=== PATIENT | female | born 1930 | race American Indian/Alaskan Native ===

== ENCOUNTER 2017-04-04 06:34 | Day surgery (SDC) | payer MEDICARE, OTHER ==
[2017-04-03 09:36] VITALS: BMI 26.2
[2017-04-04] MEDS ORDERED: Aminophylline 25 mg/ml Inj ONE (09:32)
[2017-04-04 14:07] VITALS: BP 147/71; PULSE 78; RESP 18; TEMP 97.6; O2SAT 100
--- NOTE | 2017-04-05 19:52 | CARD ---
APPROVED REPORT Protocol: PHARMACOLOGICAL STRESS Test Type: LEXISCAN Test Indications: DIZZINESS,SYNCOPE Medications: LIST SCAN Medical History: DIZZINESS , SYNCOPE Target HR: 131 bpm Resting ECG: NSR W/ NS ST T CHANGES Resting Heart Rate: 65 bpm Resting Blood Pressure: 140/80mmHg submaximum (85%): 111 bpm TEST SUMMARY [id number]/80.0. INFUSIONDOSE 100:300.00.01.427734/80.0. [id number]:[id number]/70.0. PROCEDURE Pharmacologic stress testing was performed using 0.4mg per 5ml of regadenoson given intravenously over 7-10 seconds. Reversal agent aminophyline 125 mg, given intravenously for Headache. POST EXERCISE Reason for Termination: Protocol Completed Target HR: No Max HR: 73 bpm 76% of Maximum Predicted HR: 131 bpm Exercise duration: 00:30 min:sec, 0 Stage Exercise capacity: 1.0METs Max Blood Pressure: 160/70mmHg Blood Pressure response to exercise: normal resting BP - appropriate response Heart Rate response to exercise: appropriate Chest Pain: No, none Angina index: 0 Arrhythmia: No, none ST Change: No, none Deviation: 0 mm INTERPRETATION Stress EKG Conclusion: NEGATIVE LEXISCAN STRESS TEST NORMAL BP RESPONSE TO LEXISCAN NUCLEAR STUDIES TO BE READ SEPARATELY EXAM: Myocardial Perfusion STRESS/REST Imaging Protocol The imaging protocol used to acquire images was Stress Tc-99m/rest Tc-99m 1 day Rest Spect myocardial perfusion imaging was performed in supine position 45 minutes following the injection of 31.3 mCi of Tc-99 Myoview. Gated Stress Spect was performed 45 minutes after intravenous 12.3 mCi Tc-99 Myoview injection. The images were gated to evaluate regional wall motion and calculate ventricular ejection fraction.Images were reconstructed using backfilter projection method in short horizontal and verticle long axis. Spect slices were generated. RESTING DATA EDV75.80glKP2.40L/min ESV21.00mlMyocardial Vopl554.00g Av. Heart Rate63.00bpm EF72.00% STRESS DATA EDV70.01ptJM6.50L/min ESV20.00mlMyocardial Chov644.00g EF71.00% Regional WT score at stress:0.00 Regional WM score at stress:0.00 Summed WT score at stress:0.00 Av. Heart Rate70.00bpmSummed WM score at stress:3.00 LV Perf. Quant 17 Seg. SSS3.00 17 Seg. SRS3.00 17 Seg. SDS0.00 Stress Defect Extent (% LAD)0.00Rest Defect Extent (% LAD)0.00Rev. Defect Extent (% LAD)0.00 Stress Defect Extent (% LCX)35.00Rest Defect Extent (% LCX)45.00Rev. Defect Extent (% LCX)0.00 Stress Defect Extent (% RCA)0.00Rest Defect Extent (% RCA)0.00Rev. Defect Extent (% RCA)0.00 Stress Defect Extent (% JAZZY)6.10Rest Defect Extent (% JAZZY)8.00Rev. Defect Extent (% JAZZY)0.00 IMPRESSION Normal Myocardial Perfusion exercise stress study Left Ventricle LV Size/Shape: The left ventricle is normal size. LV Thickness: There is normal left ventricular wall thickness. LV Function:Left ventricle systolic function is normal. The Ejection Fraction is >70%. Regional Wall Motion:There is normal left ventricular wall motion. Metabolism/Perfusion Defects: There is no scan evidence of reversible ischemia. There are no perfusion/metabolism defects. Conclusion 1. There is no scan evidence of reversible ischemia. 2. Left ventricle systolic function is normal. 3. The Ejection Fraction is >70%.
--- NOTE | 2017-04-07 08:13 | PROCN ---
DATE: 04/04/17 TILT-TABLE TEST REPORT INDICATIONS: Recurrent dizziness. DRILLING FIELD SPECIALIST: Dr. Lucita Zabala. Tilt-table test was performed in the usual protocol. The patient was put on the table and the table was tilted at 30 degrees for 5 minutes and 60 degrees for 15 minutes. The patient denies any symptoms throughout the test. IMPRESSION: Appropriate blood pressure and heart rate, responds to tilt-table test. The patient was asymptomatic throughout the test. Lucita Zabala MD
== END 2017-04-04 15:09 | disposition home or self-care (01) ==
LOC: C.CATHLAB 06:34
PROVIDERS: ATTEND Internal Medicine
DX: R42 Dizziness and giddiness (principal); R55 Syncope and collapse
CPT/HCPCS: 78452; 93017; 93306; 93660; A9502; J0280; J2785

== ENCOUNTER 2017-10-21 15:54 | Inpatient (IN) | payer MEDICARE, OTHER ==
[2017-10-21 16:15] VITALS: BMI 25.0
[2017-10-21 17:52] LABS: BASO % 0.5 % (0.0-2.0); EOS % 0.8 % (0.0-4.0); HEMOGLOBIN 11.2 g/dL (11.0-16.0); LYMPH # 0.9 K/uL (1.0-4.3); MEAN CELL VOLUME 89.9 fL (81.0-99.0); MEAN CORPUSCULAR HEMOGLOBIN 29.9 pg (27.0-31.0); MEAN CORPUSCULAR HGB CONC 33.2 g/dL (33.0-37.0); MEAN PLATELET VOLUME 7.7 fL (7.2-11.7); MONO # 0.5 K/uL (0.0-0.8); MONO % 8.1 % (0.0-10.0); NEUT # 4.4 K/uL (1.8-7.0); NEUT % 74.6 % (50.0-75.0); RBC 3.73 Mil/uL (3.80-5.20); RED CELL DISTRIBUTION WIDTH 13.8 % (11.5-14.5); WHITE BLOOD COUNT 5.8 K/uL (4.8-10.8)
[2017-10-21 18:00] LABS: ALBUMIN 3.9 g/dL (3.5-5.0); ALT/SGPT 14 U/L (9-52); AST/SGOT 29 U/L (14-36); BLOOD UREA NITROGEN 14 mg/dL (7-17); CALCIUM 8.7 mg/dl (8.6-10.4); GFR AFRICAN-AMERICAN > 60; GFR NON-AFRICAN AMERICAN > 60
--- NOTE | 2017-10-21 18:02 | RAD ---
PROCEDURE: CHEST RADIOGRAPH, 1 VIEW HISTORY: chest pain, SOB COMPARISON: 11/21/2012 FINDINGS: LUNGS: Clear. PLEURA: No pneumothorax or pleural fluid seen. CARDIOVASCULAR: No radiographic findings to suggest acute or significant cardiovascular disease. OSSEOUS STRUCTURES: No significant abnormalities. VISUALIZED UPPER ABDOMEN: Normal. OTHER FINDINGS: Deformity cavity left eboni thorax likely the sequela prior trauma including healed contiguous posterior lateral right rib fractures. IMPRESSION: No active disease. No acute/significant interval changes.
[2017-10-21 18:11] LABS: B-TYPE NATRIURETIC PEPTIDE 652 pg/mL (0-900)
--- NOTE | 2017-10-21 18:34 | C.PDOC ---
Time Seen by Provider: 10/21/17 17:17 Chief Complaint (Nursing): Chest Pain History Per: Patient, Family Onset/Duration Of Symptoms: Days (2), Intermittent Episodes Current Symptoms Are (Timing): Better Severity: Moderate Associated Symptoms: Dyspnea, Other (Dizziness) Modifying Factors: Other Indicated Below Alleviating Factors: None Additional History Per: Prior Records Past Medical History Reviewed: Historical Data, Nursing Documentation, Vital Signs Vital Signs: Last Vital Signs Temp 97.7 F 10/21/17 16:15 Pulse 75 10/21/17 17:50 Resp 13 10/21/17 17:50 BP 165/71 H 10/21/17 17:50 Pulse Ox 100 10/21/17 17:50 - Medical History PMH: Fractures (ribs), HTN, Hyperlipidemia, Peripheral Edema Surgical History: Endoscopy - [facility] Procedures CATARAC PHACOEMULS/ASPIR (10/17/05) INSERT LENS AT CATAR EXT (10/17/05) OCCUPATIONAL THERAPY (11/01/11) PHYSICAL THERAPY NEC (11/01/11) REVISE CARD RHYTHM DEV IN TRUNK SUBCU/FASCIA, PERC (10/24/14) Family History: States: Unknown Family Hx - Social History Hx Tobacco Use: No Hx Alcohol Use: No Hx Substance Use: No - Immunization History Hx Tetanus Toxoid Vaccination: No Hx Influenza Vaccination: No Hx Pneumococcal Vaccination: No Review Of Systems Except As Marked, All Systems Reviewed And Found Negative. Constitutional: Negative for: Fever, Weakness Cardiovascular: Positive for: Chest Pain Respiratory: Positive for: Shortness of Breath. Negative for: Hemoptysis Gastrointestinal: Negative for: Vomiting, Abdominal Pain Skin: Negative for: Rash Neurological: Positive for: Dizziness. Negative for: Weakness, Numbness Physical Exam - Physical Exam Appears: Non-toxic, No Acute Distress Skin: Normal Color, Warm, Dry, No Rash Head: Atraumatic, Normacephalic Eye(s): bilateral: Normal Inspection, PERRL, EOMI Neck: Normal ROM, Supple Cardiovascular: Rhythm Regular Respiratory: Normal Breath Sounds, No Accessory Muscle Use Gastrointestinal/Abdominal: Soft, No Tenderness Extremity: Normal ROM, No Calf Tenderness Neurological/Psych: Oriented x3, Normal Motor, Normal Sensation ED Course And Treatment - Laboratory Results Result Diagrams: 10/21/17 17:41 10/21/17 17:41 Lab Interpretation: No Acute Changes ECG: Interpreted By Me, Viewed By Me ECG Rhythm: Sinus Rhythm, 1st Degree HB, Nonspecific Changes Rate From EC O2 Sat by Pulse Oximetry: 100 Pulse Ox Interpretation: Normal - Radiology CXR: Viewed By Me, Read By Radiologist CXR Interpretation: Yes: No Acute Disease Progress - Interventions Interventions:: Observation - Medications Administered Oral: Aspirin - Data Reviewed Data Reviewed: Lab, Diagnostic imaging, EKG, Old records - Continuity of Care Discussed patient case with:: Patient, Family-HIPPA compliant, ED Nurse, PMD Disposition Discussed With DrBrian: Lucita Zabala Comment: He accepted pt on his service. Doctor Will See Patient In The: Hospital Counseled Patient/Family Regarding: Studies Performed, Diagnosis - Disposition Disposition: HOSPITALIZED Disposition Time: 18:39 Condition: FAIR - Clinical Impression Clinical Impression: Chest pain, Dizziness
[2017-10-21] MEDS ORDERED: Enoxaparin 40 mg Syringe SC ONE (23:54)
[2017-10-22] MEDS: Metoprolol Succinate 25 mg XL Tab PO SCH ×3 (00:27→17:22)
[2017-10-22] MEDS: Ranolazine 500 mg Extended Release Tablets PO SCH ×3 (00:28→17:22)
[2017-10-22 00:45] LABS: CK-MB 1.52 ng/mL (0.0-3.38)
[2017-10-22 07:21] LABS: CK-MB 1.34 ng/mL (0.0-3.38); TROPONIN I 0.013 ng/mL (0.00-0.120)
[2017-10-22] MEDS ORDERED: Ergocalciferol 50,000 Intl Units Cap PO SCH (10:00)
[2017-10-22] MEDS: Enoxaparin 40 mg Syringe SC SCH (10:20)
--- NOTE | 2017-10-22 20:49 | CARD ---
APPROVED REPORT EKG Measurement Heart [id number] AL [id number] <Conclusion> Sinus rhythm with 1st degree AV block Left anterior fascicular block Abnormal ECG
--- NOTE | 2017-10-22 21:54 | CP.PCM.HP ---
History of Present Illness - History of Present Illness History of Present Illness: CC dizziness chest pain HPI 87 y/o AAF admitted w/ 2 day hx of recurrent dizziness with occasional near syncopal episode. Pt also endorses right sided chest pain radiating to the mid- sternal area. EKG in the office revealed NSR w/ first degree AV block, LAHB and IRBBB. Pt was advised to go to ER for admission. Present on Admission - Present on Admission Any Indicators Present on Admission: No Review of Systems - Cardiovascular Cardiovascular: Chest Pain, Dyspnea on Exertion Additional comments: near-syncope - Respiratory Respiratory: Dyspnea on Exertion. absent: Cough - Neurological Neurological: Dizziness. absent: Focal Weakness Additional comments: near-syncope Past Patient History - Past Medical History & Family History Past Medical History?: Yes - Past Social History Smoking Status: Never Smoked - CARDIAC Hx Hypercholesterolemia: Yes Hx Hypertension: Yes - PULMONARY Hx Respiratory Disorders: Yes (1991 trauma punctured lung ribs fractued) - NEUROLOGICAL Hx Neurological Disorder: Yes Hx Dizziness: Yes - HEENT Hx HEENT Problems: Yes Hx Cataracts: Yes (bilat iol) Hx Glaucoma: Yes - RENAL Hx Chronic Kidney Disease: No - ENDOCRINE/METABOLIC Hx Endocrine Disorders: No - HEMATOLOGICAL/ONCOLOGICAL Hx Blood Disorders: Yes Hx Blood Transfusions: Yes Hx Blood Transfusion Reaction: No - INTEGUMENTARY Hx Dermatological Problems: No - MUSCULOSKELETAL/RHEUMATOLOGICAL Hx Fractures: Yes (ribs) - GASTROINTESTINAL Hx Gastrointestinal Disorders: Yes Hx Gastroesophageal Reflux: Yes - GENITOURINARY/GYNECOLOGICAL Hx Genitourinary Disorders: No - PSYCHIATRIC Hx Substance Use: No - SURGICAL HISTORY Hx Surgeries: Yes Hx Cataract Extraction: Yes - ANESTHESIA Hx Anesthesia: Yes Hx Anesthesia Reactions: No Hx Malignant Hyperthermia: No Meds Allergies/Adverse Reactions: Allergies Allergy/AdvReac Type Severity Reaction Status Date / Time No Known Allergies Allergy Verified 10/21/17 16:14 Physical Exam - Constitutional Appears: Non-toxic - Head Exam Head Exam: NORMAL INSPECTION - Eye Exam Eye Exam: absent: Scleral icterus - ENT Exam ENT Exam: Mucous Membranes Moist - Neck Exam Neck exam: Positive for: Full Rom. Negative for: Lymphadenopathy - Respiratory Exam Respiratory Exam: Decreased Breath Sounds, NORMAL BREATHING PATTERN - Cardiovascular Exam Cardiovascular Exam: REGULAR RHYTHM. absent: Diastolic murmur, Systolic Murmur - GI/Abdominal Exam GI & Abdominal Exam: Soft. absent: Tenderness - Extremities Exam Extremities exam: Positive for: pedal edema - Neurological Exam Neurological exam: Alert, Oriented x3 Results - Vital Signs Recent Vital Signs: Last Vital Signs Temp 98.3 F 10/22/17 15:16 Pulse 69 10/22/17 15:16 Resp 20 10/22/17 15:16 BP 153/75 H 10/22/17 15:16 Pulse Ox 100 10/22/17 15:16 - Labs Result Diagrams: 10/21/17 17:41 10/21/17 17:41 Labs: Laboratory Results - last 24 hr 10/22/17 10/22/17 00:12 06:00 Total Creatine Kinase 117 86 CK-MB (Mass) 1.52 1.34 Troponin I < 0.0120 0.0130 Assessment & Plan - Assessment and Plan (Free Text) Assessment: Near-syncope ACS Plan: trops q6hr x 3 with ekg echo interrogate loop lexiscan Consider PPM implant if loop reveal Complete Heart Block or complete RBBB.
[2017-10-22] MEDS ORDERED: Enoxaparin 40 mg Syringe SC SCH (23:12)
[2017-10-23] MEDS: Ranolazine 500 mg Extended Release Tablets PO SCH ×3 (10:00→17:28)
[2017-10-23] MEDS: Enoxaparin 40 mg Syringe SC SCH (10:00)
[2017-10-23] MEDS: Metoprolol Succinate 25 mg XL Tab PO SCH ×3 (10:00→17:27)
--- NOTE | 2017-10-24 09:54 | CARD ---
APPROVED REPORT Protocol: PHARMACOLOGICAL STRESS Test Type: LEXISCAN Test Indications: CHEST PAIN,R/O CAD Medications: LIST SCAN Medical History: DIZZINESS, SYNCOPE, CHEST PAIN,R/O CAD Target HR: 131 bpm Resting ECG: NSR WITH FIRST DEGREE AV BLOCK Resting Heart Rate: 64 bpm Resting Blood Pressure: 141/70mmHg submaximum (85%): 111 bpm TEST SUMMARY [id number]:200.00.01.652597/70.0. INFUSIONDOSE 100:300.00.01.062/.0. ZNRZDTSUN96:170.00.01.733331/60.0. PROCEDURE Pharmacologic stress testing was performed using 0.4mg per 5ml of regadenoson given intravenously over 7-10 seconds. Reversal agent aminophyline 125 mg, given intravenously for Dizziness. POST EXERCISE Reason for Termination: Protocol Completed Target HR: No Max HR: 62 bpm 65% of Maximum Predicted HR: 131 bpm Exercise duration: 00:30 min:sec, 0 Stage Exercise capacity: 1.0METs Max Blood Pressure: 141/70mmHg Blood Pressure response to exercise: normal resting BP - appropriate response Heart Rate response to exercise: appropriate Chest Pain: No, none Angina index: 0 Arrhythmia: No, none ST Change: No, none Deviation: 0 mm INTERPRETATION Stress EKG Conclusion: NEGATIVE LEXISCAN STRESS TEST NORMAL BP RESPONSE TO LEXISCAN NUCLEAR STUDIES TO BE READ SEPARATELY EXAM: Myocardial Perfusion STRESS/REST Imaging Protocol The imaging protocol used to acquire images was Stress Tc-99m/rest Tc-99m 1 day Rest Spect myocardial perfusion imaging was performed in supine position 45 minutes following the injection of 32.4 mCi of Tc-99 Myoview. Gated Stress Spect was performed 45 minutes after intravenous 13.2 mCi Tc-99 Myoview injection. The images were gated to evaluate regional wall motion and calculate ventricular ejection fraction.Images were reconstructed using backfilter projection method in short horizontal and verticle long axis. Spect slices were generated. RESTING DATA EDV85.47wtVP5.70L/min1/3 Pk. Filling Rate1.54EDV/sec LV Time to Pk. Filling Steg313.06msec ESV21.00mlMyocardial Vums542.00gLV Time to Pk. Ejection Hfbk834.16msec Pk. Fill Rate3.39EDV/secAv. Heart Rate74.00bpm EF75.00%Pk. Emptying Rate4.31ESV/sec STRESS DATA EDV82.67kaFO2.40L/min ESV24.00mlMyocardial Jued457.00g Pk. Fill Rate2.27EDV/sec EF71.00%Pk. Emptying Rate3.58ESV/sec 1/3 Pk. Filling Rate1.11EDV/secRegional WT score at stress:1.00 LV Time to Pk. Filling Rate:311.98msecRegional WM score at stress:0.00 LV Time to Pk. Ejection Rate:149.90msecSummed WT score at stress:8.00 Av. Heart Rate59.00bpmSummed WM score at stress:1.00 LV Perf. Quant 17 Seg. SSS6.00 17 Seg. SRS3.00 17 Seg. SDS3.00 Stress Defect Extent (% LAD)0.00Rest Defect Extent (% LAD)0.00Rev. Defect Extent (% LAD)0.00 Stress Defect Extent (% LCX)30.00Rest Defect Extent (% LCX)18.80Rev. Defect Extent (% LCX)1.30 Stress Defect Extent (% RCA)0.00Rest Defect Extent (% RCA)0.00Rev. Defect Extent (% RCA)0.00 Stress Defect Extent (% JAZZY)7.20Rest Defect Extent (% JAZZY)3.30Rev. Defect Extent (% JAZZY)0.20 IMPRESSION Abnormal Myocardial Perfusion exercise stress study Left Ventricle LV Size/Shape: The left ventricle is normal size. LV Function:Left ventricle systolic function is normal. The Ejection Fraction is >70%. Regional Wall Motion:There is normal left ventricular wall motion. Metabolism/Perfusion Defects: There is scan evidence of reversible ischemia involving the inferior wall noted. Conclusion 1. There is scan evidence of reversible ischemia involving the inferior wall noted. 2. Left ventricle systolic function is normal. 3. The Ejection Fraction is >70%.
[2017-10-24] MEDS: Ranolazine 500 mg Extended Release Tablets PO SCH ×2 (10:32→18:05)
[2017-10-24] MEDS: Metoprolol Succinate 25 mg XL Tab PO SCH ×2 (10:33→18:00)
[2017-10-24] MEDS: Enoxaparin 40 mg Syringe SC SCH (10:33)
[2017-10-25] MEDS: Metoprolol Succinate 25 mg XL Tab PO SCH ×2 (09:54→19:00)
[2017-10-25] MEDS: Ranolazine 500 mg Extended Release Tablets PO SCH ×2 (09:54→19:00)
[2017-10-25] MEDS: Enoxaparin 40 mg Syringe SC SCH (10:01)
--- NOTE | 2017-10-25 15:15 | CP.PCM.PN ---
Subjective - Date & Time of Evaluation Date of Evaluation: 10/23/17 Time of Evaluation: 08:00 - Subjective Subjective: Pt denied any chest chest but still having recurrent dizziness. Lexiscan performed on the patient. Results-pending Objective - Vital Signs/Intake and Output Vital Signs (last 24 hours): Temp Pulse Resp BP Pulse Ox 98.5 F 64 20 152/77 H 99 10/25/17 08:44 10/25/17 08:44 10/25/17 08:44 10/25/17 14:31 10/25/17 08:44 Intake and Output: 10/25/17 10/25/17 06:59 18:59 Intake Total 360 480 Balance 360 480 - Medications Medications: Current Medications Aspirin (Aspirin Chewable) 81 mg PO DAILY [facility] Last Admin: 10/25/17 09:54 Dose: 81 mg Enoxaparin Sodium (Lovenox) 40 mg SC DAILY [facility] Last Admin: 10/25/17 10:01 Dose: Not Given Ergocalciferol (Drisdol 50,000 Intl Units Cap) 1 cap PO QWK [facility] Last Admin: 10/22/17 10:27 Dose: 1 cap Famotidine (Pepcid) 20 mg PO DAILY [facility] Last Admin: 10/25/17 09:54 Dose: 20 mg Losartan Potassium (Cozaar) 100 mg PO DAILY [facility] Last Admin: 10/25/17 09:54 Dose: 100 mg Metoprolol Succinate (Toprol Xl) 25 mg PO BID [facility] Last Admin: 10/25/17 09:54 Dose: 25 mg Ranolazine (Ranexa) 500 mg PO BID [facility] Last Admin: 10/25/17 09:54 Dose: 500 mg Rosuvastatin Calcium (Crestor) 10 mg PO HS [facility] Last Admin: 10/24/17 21:42 Dose: 10 mg - Labs Labs: 10/21/17 17:41 10/21/17 17:41 - Constitutional Appears: Non-toxic - Head Exam Head Exam: NORMAL INSPECTION - Eye Exam Eye Exam: absent: Scleral icterus - ENT Exam ENT Exam: Mucous Membranes Moist - Neck Exam Neck Exam: Full ROM - Respiratory Exam Respiratory Exam: NORMAL BREATHING PATTERN - Cardiovascular Exam Cardiovascular Exam: REGULAR RHYTHM - GI/Abdominal Exam GI & Abdominal Exam: Soft. absent: Tenderness - Extremities Exam Additional comments: Left foot swollen due to chronic lymphedema - Neurological Exam Neurological Exam: Alert, Oriented x3 Assessment and Plan - Assessment and Plan (Free Text) Assessment: ACS Recurrent dizziness HTN Plan: TILT Table Test tomorrow Cont meds
--- NOTE | 2017-10-25 15:25 | CP.PCM.PN ---
Subjective - Date & Time of Evaluation Date of Evaluation: 10/24/17 Time of Evaluation: 09:30 - Subjective Subjective: TILT table Test performed. Indic: Near-syncope OBSERVATION : Slow decline in BP 22mmHg dropped and HR 6bpm dropped Patient experienced dizziness during the the test IMPRESSION: CHANGES IN BLOOD PRESSURE AND HEART RATE ARE CONSISTENT WITH AUTONOMIC NEUROPATHY. Objective - Vital Signs/Intake and Output Vital Signs (last 24 hours): Temp Pulse Resp BP Pulse Ox 98.5 F 64 20 152/77 H 99 10/25/17 08:44 10/25/17 08:44 10/25/17 08:44 10/25/17 14:31 10/25/17 08:44 Intake and Output: 10/25/17 10/25/17 06:59 18:59 Intake Total 360 480 Balance 360 480 - Medications Medications: Current Medications Aspirin (Aspirin Chewable) 81 mg PO DAILY [facility] Last Admin: 10/25/17 09:54 Dose: 81 mg Enoxaparin Sodium (Lovenox) 40 mg SC DAILY [facility] Last Admin: 10/25/17 10:01 Dose: Not Given Ergocalciferol (Drisdol 50,000 Intl Units Cap) 1 cap PO QWK [facility] Last Admin: 10/22/17 10:27 Dose: 1 cap Famotidine (Pepcid) 20 mg PO DAILY [facility] Last Admin: 10/25/17 09:54 Dose: 20 mg Losartan Potassium (Cozaar) 100 mg PO DAILY [facility] Last Admin: 10/25/17 09:54 Dose: 100 mg Metoprolol Succinate (Toprol Xl) 25 mg PO BID [facility] Last Admin: 10/25/17 09:54 Dose: 25 mg Ranolazine (Ranexa) 500 mg PO BID [facility] Last Admin: 10/25/17 09:54 Dose: 500 mg Rosuvastatin Calcium (Crestor) 10 mg PO HS [facility] Last Admin: 10/24/17 21:42 Dose: 10 mg - Labs Labs: 10/21/17 17:41 10/21/17 17:41
--- NOTE | 2017-10-25 15:29 | CP.PCM.PN ---
Subjective - Date & Time of Evaluation Date of Evaluation: 10/24/17 Time of Evaluation: 10:25 - Subjective Subjective: Lexiscan - revealed ischemia in the inferior wall TILT Table test - revealed BP and HR response consistent with Autonomic neuropathy Objective - Vital Signs/Intake and Output Vital Signs (last 24 hours): Temp Pulse Resp BP Pulse Ox 98.5 F 64 20 152/77 H 99 10/25/17 08:44 10/25/17 08:44 10/25/17 08:44 10/25/17 14:31 10/25/17 08:44 Intake and Output: 10/25/17 10/25/17 06:59 18:59 Intake Total 360 480 Balance 360 480 - Medications Medications: Current Medications Aspirin (Aspirin Chewable) 81 mg PO DAILY [facility] Last Admin: 10/25/17 09:54 Dose: 81 mg Enoxaparin Sodium (Lovenox) 40 mg SC DAILY [facility] Last Admin: 10/25/17 10:01 Dose: Not Given Ergocalciferol (Drisdol 50,000 Intl Units Cap) 1 cap PO QWK [facility] Last Admin: 10/22/17 10:27 Dose: 1 cap Famotidine (Pepcid) 20 mg PO DAILY [facility] Last Admin: 10/25/17 09:54 Dose: 20 mg Losartan Potassium (Cozaar) 100 mg PO DAILY [facility] Last Admin: 10/25/17 09:54 Dose: 100 mg Metoprolol Succinate (Toprol Xl) 25 mg PO BID [facility] Last Admin: 10/25/17 09:54 Dose: 25 mg Ranolazine (Ranexa) 500 mg PO BID [facility] Last Admin: 10/25/17 09:54 Dose: 500 mg Rosuvastatin Calcium (Crestor) 10 mg PO HS [facility] Last Admin: 10/24/17 21:42 Dose: 10 mg - Labs Labs: 10/21/17 17:41 10/21/17 17:41 - Constitutional Appears: Non-toxic - Head Exam Head Exam: NORMAL INSPECTION - Eye Exam Eye Exam: Scleral icterus - ENT Exam ENT Exam: Mucous Membranes Moist - Neck Exam Neck Exam: Full ROM. absent: Lymphadenopathy - Respiratory Exam Respiratory Exam: Decreased Breath Sounds, NORMAL BREATHING PATTERN - Cardiovascular Exam Cardiovascular Exam: REGULAR RHYTHM - GI/Abdominal Exam GI & Abdominal Exam: Soft, Tenderness - Extremities Exam Extremities Exam: Pedal Edema Additional comments: +chronic lymphedema in left lower ext - Neurological Exam Neurological Exam: Alert, Oriented x3 Assessment and Plan - Assessment and Plan (Free Text) Assessment: ACS Dizziness due to autonomic neuropathy HTN Plan: Will discuss cardiac cath with patient.
--- NOTE | 2017-10-25 15:40 | CP.PCM.PN ---
Subjective - Date & Time of Evaluation Date of Evaluation: 10/24/17 Time of Evaluation: 11:15 - Subjective Subjective: Pt still with dizziness and atypical chest pain Objective - Vital Signs/Intake and Output Vital Signs (last 24 hours): Temp Pulse Resp BP Pulse Ox 98.5 F 64 20 152/77 H 99 10/25/17 08:44 10/25/17 08:44 10/25/17 08:44 10/25/17 14:31 10/25/17 08:44 Intake and Output: 10/25/17 10/25/17 06:59 18:59 Intake Total 360 480 Balance 360 480 - Medications Medications: Current Medications Aspirin (Aspirin Chewable) 81 mg PO DAILY [facility] Last Admin: 10/25/17 09:54 Dose: 81 mg Enoxaparin Sodium (Lovenox) 40 mg SC DAILY [facility] Last Admin: 10/25/17 10:01 Dose: Not Given Ergocalciferol (Drisdol 50,000 Intl Units Cap) 1 cap PO QWK [facility] Last Admin: 10/22/17 10:27 Dose: 1 cap Famotidine (Pepcid) 20 mg PO DAILY [facility] Last Admin: 10/25/17 09:54 Dose: 20 mg Losartan Potassium (Cozaar) 100 mg PO DAILY [facility] Last Admin: 10/25/17 09:54 Dose: 100 mg Metoprolol Succinate (Toprol Xl) 25 mg PO BID [facility] Last Admin: 10/25/17 09:54 Dose: 25 mg Ranolazine (Ranexa) 500 mg PO BID [facility] Last Admin: 10/25/17 09:54 Dose: 500 mg Rosuvastatin Calcium (Crestor) 10 mg PO HS [facility] Last Admin: 10/24/17 21:42 Dose: 10 mg - Labs Labs: 10/21/17 17:41 10/21/17 17:41 - Constitutional Appears: Non-toxic - Head Exam Head Exam: NORMAL INSPECTION - Eye Exam Eye Exam: absent: Scleral icterus - ENT Exam ENT Exam: Mucous Membranes Moist - Neck Exam Neck Exam: Full ROM. absent: Lymphadenopathy - Respiratory Exam Respiratory Exam: NORMAL BREATHING PATTERN. absent: Decreased Breath Sounds - Cardiovascular Exam Cardiovascular Exam: REGULAR RHYTHM - GI/Abdominal Exam GI & Abdominal Exam: Normal Bowel Sounds - Extremities Exam Extremities Exam: absent: Calf Tenderness Additional comments: chronic lymphedema - Neurological Exam Neurological Exam: Alert, Oriented x3 Assessment and Plan - Assessment and Plan (Free Text) Assessment: ACS Recurrent dizziness HTN Plan: Tilt Table Test in am Cont present meds.
[2017-10-25] MEDS ORDERED: LATANOPROST 0.005% OU SCH (18:00)
[2017-10-26 07:51] LABS: HEMOGLOBIN 11.2 g/dL (11.0-16.0); MEAN CELL VOLUME 91.8 fL (81.0-99.0); MEAN CORPUSCULAR HEMOGLOBIN 31.2 pg (27.0-31.0); MEAN PLATELET VOLUME 8.1 fL (7.2-11.7); RBC 3.58 Mil/uL (3.80-5.20); RED CELL DISTRIBUTION WIDTH 13.4 % (11.5-14.5)
[2017-10-26 07:53] LABS: PROTHROMBIN TIME 11.3 SECONDS (9.7-12.2)
[2017-10-26 08:03] LABS: CALCIUM 8.7 mg/dl (8.6-10.4)
[2017-10-26] MEDS: Ranolazine 500 mg Extended Release Tablets PO SCH ×2 (09:51→18:08)
[2017-10-26] MEDS: Metoprolol Succinate 25 mg XL Tab PO SCH ×2 (09:51→18:08)
[2017-10-26] MEDS: Enoxaparin 40 mg Syringe SC SCH (09:53)
--- NOTE | 2017-10-26 11:25 | CARD ---
APPROVED REPORT EXAM: Two-dimensional and M-mode echocardiogram with Doppler and color Doppler. Other Information Quality : GoodRhythm : INDICATION Chest Pain RISK FACTORS Hypertension Hyperlipidemia 2D DIMENSIONS IVSd0.7 (0.7-1.1cm)LVDd5.1 (3.9-5.9cm) PWd0.8 (0.7-1.1cm)LVDs2.8 (2.5-4.0cm) FS (%) 45.8 %LVEF (%)70.0 (>50%) M-Mode DIMENSIONS RVDd2.40 (2.1-3.2cm)Left Atrium (MM)4.06 (2.5-4.0cm) IVSd0.85 (0.7-1.1cm)Aortic Root3.44 (2.2-3.7cm) LVDd5.08 (4.0-5.6cm)Aortic Cusp Exc.1.73 (1.5-2.0cm) PWd0.95 (0.7-1.1cm)FS (%) 49 % LVDs2.59 (2.0-3.8cm)LVEF (%)80 (>50%) Aortic Valve AI P 1/2 [id number] Mitral Valve MV E Lfhrzlot29.2cm/sMV A Iyxlkwzl38.3cm/sE/A ratio0.9 TDI E/Lateral E'0.0E/Medial E'0.0 Tricuspid Valve TR Peak Yomxmwya390gz/sTR Peak Gr.[id number] <Conclusion> Left ventricle: thickness: normal; size: normal; overall ejection fraction: 65%: diastolic filling pressures: normal Mitral valve: annulus: normal: leaflets: normal: excursion: normal; no significant trans-mitral gradient: no significant incompetence: left atrium: normal Aortic valve: leaflets: mild calcific thickening: excursion: normal; no significant trans-aortic gradient: mild incompetence: aortic root: dilated Right sided Structures: Pulmonary valve: normal; no significant incompetence; Tricuspid valve: normal; mild incompetence: Intra-cardiac hemodynamics: pulmonary systolic pressures: normal; central venous pressures: normal No pericardial effusion
[2017-10-26] MEDS: DORZOLAMIDE OU SCH (18:09)
[2017-10-26] MEDS: TIMOLOL OU SCH (18:09)
[2017-10-26] MEDS ORDERED: Iodixanol 320 mg/ml 150 ml Bottle IV ONE (18:31)
--- NOTE | 2017-10-26 21:21 | CARD ---
APPROVED REPORT EKG Measurement Heart [id number] MS [id number] <Conclusion> Sinus bradycardia with 1st degree AV block Incomplete right bundle branch block Left anterior fascicular block Nonspecific ST and T wave abnormality Abnormal ECG
--- NOTE | 2017-10-26 21:40 | CARD ---
APPROVED REPORT EKG Measurement Heart [id number] AL 258P [id number] <Conclusion> Sinus rhythm with 1st degree AV block Left anteriior fascicular block Incomplete right bundle branch block, voltage criteria for LVH Abnormal ECG
--- NOTE | 2017-10-26 21:46 | CARD ---
APPROVED REPORT EKG Measurement Heart [id number] IA 258P [id number] <Conclusion> Sinus rhythm with 1st degree AV block Right bundle branch block Left anterior fascicular block Bifascicular block Abnormal ECG
[2017-10-26] MEDS: LATANOPROST 0.005% OU SCH (23:00)
[2017-10-27] MEDS: Metoprolol Succinate 25 mg XL Tab PO SCH ×3 (07:34→17:02)
--- NOTE | 2017-10-27 08:36 | PROCN ---
DATE: 10/24/2017 PROCEDURE: Tilt-table test. INDICATION: Recurrent dizziness and near syncopal episode. VEHICLE GLASS TECHNICIAN: Lucita Zabala MD DESCRIPTION OF PROCEDURE: The patient was brought to the laboratory clerk and tilt-table test was performed at 30 degrees for 5 minutes and 60 degrees for 15 minutes. There was a slow decline in blood pressure and heart rate response during the test. There was a 22 mmHg decline in blood pressure and 6 beats per minute decline in heart rate. The patient had mild dizziness during the test. 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 Lucita Zabala MD
[2017-10-27] MEDS ORDERED: Midazolam 2 MG/2 ML VIAL ONE (08:44)
[2017-10-27] MEDS ORDERED: Phenylephrine 10 mg/ml Inj ONE (08:55)
[2017-10-27] MEDS: Enoxaparin 40 mg Syringe SC SCH (09:30)
--- NOTE | 2017-10-27 10:33 | CT ---
PROCEDURE: CT Angiography of the neck and brain dated 10 26 17 HISTORY: Syncope. COMPARISON: Comparison made with prior CT scan brain dated MRI of the brain dated 04/01/2014. TECHNIQUE: Contiguous helical/transaxial images of the neck were obtained from the level of the skull-base to the superior mediastinum in the arteriographic phase of enhancement. Coronal and sagittal reformats or also generated. IV contrast dose: 100 cc Visipaque 320 Radiation Dose - DLP: 519.62 mGy-cm This CT exam was performed using one or more of the following dose reduction techniques: Automated exposure control, adjustment of the mA and/or kV according to patient size, and/or use of iterative reconstruction technique. . FINDINGS: The visualized portions of the aortic arch are widely patent with minor partially calcified atherosclerotic plaque changes seen along the inferolateral and descending portions of the thoracic aorta. The at ascending thoracic aorta measures approximately 3.6 cm and descending thoracic aorta measures approximately 3.0 cm. Pulmonary trunk measures approximately 3.2 cm. Right brachiocephalic and left common carotid artery arise from a common trunk. Origins of the great vessels are widely patent. The visualized portions of the common carotid arteries including the carotid bifurcations,, internal carotid arteries on including the PE trace cavernous and supraclinoid segments are also widely patent. No evidence of occlusion or significant stenosis. No significant atherosclerotic plaque seen along the cavernous carotid arteries. The vertebral arteries are also widely left side larger in caliber/ more dominant than the right. The basilar artery is also patent. The visualized major branches of the [place] including the distal anterior middle and posterior cerebral arteries are patent and symmetric. . No evidence of large aneurysm nor vascular malformation. Note again made of large dural base calcification within the right parasagittal anterior margin of the interhemispheric fissure. Note again made of changes of bilateral cataract surgery. There are several of displaced old healed right-sided rib fracture deformities. Small subpleural calcification right upper lobe may represent calcified granuloma. IMPRESSION: Normal CT Angiography of the neck and brain. No evidence of occlusion dissection of large aneurysm nor vascular malformation. See above discussion for additional and the details and findings. Note that preliminary report provided by overnight radiology service.
[2017-10-27] MEDS: Ranolazine 500 mg Extended Release Tablets PO SCH ×2 (10:51→17:02)
[2017-10-27] MEDS: TIMOLOL OU SCH ×2 (10:53→17:03)
[2017-10-27] MEDS: DORZOLAMIDE OU SCH ×2 (10:53→17:03)
[2017-10-27] MEDS: LATANOPROST 0.005% OU SCH (21:06)
[2017-10-28 07:43] VITALS: BP 147/66; RESP 20; TEMP 98.3; O2SAT 99
[2017-10-28] MEDS: Enoxaparin 40 mg Syringe SC SCH (09:03)
[2017-10-28] MEDS: Ranolazine 500 mg Extended Release Tablets PO SCH (09:04)
[2017-10-28] MEDS: TIMOLOL OU SCH (09:05)
[2017-10-28] MEDS: DORZOLAMIDE OU SCH (09:05)
[2017-10-28] MEDS: Metoprolol Succinate 25 mg XL Tab PO SCH (10:08)
[2017-10-28 13:01] VITALS: PULSE 52
--- NOTE | 2017-10-28 16:45 | CP.PCM.PN ---
Subjective - Date & Time of Evaluation Date of Evaluation: 10/28/17 Time of Evaluation: 11:00 - Subjective Subjective: Alert, orientedx3, no sob or chest pains noted. Objective - Vital Signs/Intake and Output Vital Signs (last 24 hours): Temp Pulse Resp BP Pulse Ox 98.3 F 52 L 20 147/66 99 10/28/17 07:42 10/28/17 12:00 10/28/17 07:42 10/28/17 07:42 10/28/17 07:42 Intake and Output: 10/28/17 10/28/17 06:59 18:59 Intake Total 350 Balance 350 - Labs Labs: 10/26/17 07:41 10/26/17 07:41 PT 11.3 SECONDS (9.7-12.2) 10/26/17 07:41 INR 1.0 10/26/17 07:41 APTT 32 SECONDS (21-34) 10/26/17 07:41 Assessment and Plan - Assessment and Plan (Free Text) Assessment: Patient s/p cardiac catheterization yesterday by DR Zabala seen and examined. Alert, awake, denies sob or chest pains. Right groin dressing intact, no hematoma or pain. Discussed with DR Zabala, plan to discharge home today. Metoprolol decreased to 25 mg secondary to bradycardia. Advised to follow up in the office in 1 week.
--- NOTE | 2017-11-26 14:35 | CATH ---
APPROVED REPORT Procedure(s) performed: LEFT HEART CATH CORONARY ARTERIOGRAM LEFT VENTRICULOGRAM Event Personnel: Reclamation Furnace Operator: Dr Lucita Zabala HISTORY The patient is a 87 year-old female with a history of : hypertension, dyslipidemia, admitted with dizziness associated with palpitations, atypical/typical chest pain and and sob on exertion.. INDICATION The indication(s) include : positive stress test, palpitations, atypical chest pain , unstable angina . CASE TECHNIQUE The patient was brought electively to the Cardiac Catheterization Laboratory in a fasting state and was prepped and draped in a sterile manner. The right femoral groin was infiltrated with 2% Lidocaine subcutaneous anesthesia. A 6French sheath was inserted into the right femoral artery without difficulty. Coronary angiography was performed using coronary diagnostic catheters. The left coronary system was accessed and visualized with a Diagnostic catheter. The right coronary system was accessed and visualized with a Diagnostic catheter. The left ventricle was accessed and visualized with a Diagnostic catheter. Left ventriculogram was performed in AREVALO projection. Pre-demployment femoral angiogram was performed . The patient tolerated the procedure well and there were no complications associated with the procedure. Vessel Analysis The patient's coronary anatomy is left dominant. The left main coronary artery is a medium size vessel that courses in the normal fashion. There is a 30% stenosis in the ostial segment. The left main bifurcates to the left anterior descending and circumflex. The left anterior descending artery is a medium size vessel without stenosis. The circumflex artery is a medium size vessel without significant stenosis. The right coronary artery is a small size vessel without significant stenosis. The RCA is a non-dominant vessel. Left Ventricle The left ventricle is normal in size with good contractility. The left ventricular ejection fraction is estimated to be >70%. There was no gradient across the aortic valve upon pullback. 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 Normal LV systolic function. Recommendations Medical Therapy
== END 2017-10-28 14:54 | disposition home or self-care (01) | DRG 287 ==
LOC: C.ER 15:54 → C.9E 18:39 → C.6T 18:39 → OBSVTOIN 10-24 13:20
PROVIDERS: ADMIT Internal Medicine; ATTEND Internal Medicine
PROC: 4A03XB1 Measurement of Arterial Pressure, Peripheral, External Approach (ICD-10-PCS; 2017-10-24)
PROC: 4A02XFZ Measurement of Cardiac Rhythm, External Approach (ICD-10-PCS; principal; 2017-10-24 07:15)
PROC: 4A023N7 Measurement of Cardiac Sampling and Pressure, Left Heart, Percutaneous Approach (ICD-10-PCS; 2017-10-27)
PROC: B2151ZZ Fluoroscopy of Left Heart using Low Osmolar Contrast (ICD-10-PCS; 2017-10-27)
PROC: B2111ZZ Fluoroscopy of Multiple Coronary Arteries using Low Osmolar Contrast (ICD-10-PCS; 2017-10-27)
DX: I44.0 Atrioventricular block, first degree (principal); I25.110 Atherosclerotic heart disease of native coronary artery with unstable angina pectoris; I10 Essential (primary) hypertension; H40.9 Unspecified glaucoma; E78.00 Pure hypercholesterolemia, unspecified; R42 Dizziness and giddiness; R55 Syncope and collapse; R07.89 Other chest pain; G90.9 Disorder of the autonomic nervous system, unspecified; I25.10 Atherosclerotic heart disease of native coronary artery without angina pectoris; G62.9 Polyneuropathy, unspecified; E78.5 Hyperlipidemia, unspecified